=== PATIENT | female | born 1950 | race Caucasian/White ===

== ENCOUNTER 2022-06-09 13:30 | Outpatient (CLI) | payer MEDICARE | END 2022-06-09 13:31 | disposition home or self-care (01) | LOC: CSHMAMMO 13:30 | PROVIDERS: ATTEND Nurse Practitioner Family | DX: Z13.820 Encounter for screening for osteoporosis (principal); M85.852 Other specified disorders of bone density and structure, left thigh | CPT/HCPCS: 77080 ==

== ENCOUNTER 2024-07-30 21:13 | Observation (INO) | payer MEDICARE ==
[2024-07-30] MEDS ORDERED: Acetaminophen 650 MG Suppository PR PRN (21:29)
[2024-07-30 21:52] VITALS: BMI 29.2
[2024-07-30] MEDS: Acetaminophen 500 MG TAB PO SCH (22:12)
[2024-07-30] MEDS: Valsartan 80 MG TAB PO SCH (22:12)
[2024-07-30] MEDS: Gabapentin 300 MG CAP PO SCH (22:13)
[2024-07-30] MEDS: cloNIDine 0.1 MG TAB PO SCH (22:14)
[2024-07-30] MEDS: Nitroglycerin 0.4 MG TAB (25 Tab Bottle) SL PRN (22:16)
[2024-07-30 22:23] LABS: Troponin I 0.019 ng/mL (< 0.028)
[2024-07-31 01:48] LABS: Troponin I 0.054 ng/mL (< 0.028)
[2024-07-31 04:02] LABS: #Basophils 0.03 10x3/uL (0.0-0.2); #Eosinphils 0.12 10x3/uL (0.0-0.5); #Monocytes 0.59 10x3/uL (0.0-1.1); #Neutrophils 3.88 10x3/uL (1.5-8.4); %Basophils 0.4 % (0.0-2.0); %Eosinophils 1.7 % (0.0-6.0); %Lymphocytes 35.2 % (18.0-47.0); %Monocytes 8.3 % (0.0-10.0); %Neutrophils 54.3 % (40.0-75.0); Hemoglobin 11.4 g/dL (12.0-15.5); Mean Corpuscular HGB CONC 32.6 g/dL (32.0-36.0); Mean Corpuscular Hemoglobin 32.5 pg (27.0-33.0); Mean Corpuscular Volume 99.7 fL (81.6-98.3); Mean Platelet Volume 10.8 fL (7.4-10.4); Platelet Count 167 10x3/uL (150-450); RBC Distribution Width 12.6 % (11.5-14.5); Red Blood Cell (RBC) Count 3.51 10x6/uL (3.90-5.03); White Blood Cell (WBC) Count 7.1 10x3/uL (3.5-10.5)
[2024-07-31] MEDS: Acetaminophen 325 MG TAB PO PRN (04:17)
[2024-07-31 04:18] LABS: Anion Gap 13 mmol/L (10-20); BUN (Urea Nitrogen) 15 mg/dL (9.8-20.1); Calc. Creatinine Clearance 66 mL/min (70-130); Calcium 8.7 mg/dL (7.8-10.44); Carbon Dioxide 21 mmol/L (23-31); Cardiac Risk 2.7 (Less than 4.5); Chloride 112 mmol/L (98-107); Cholesterol 96 mg/dl (< 200 Desired); Estimated GFR 63; Glucose 101 mg/dL (83-110); HDL Cholesterol 35 mg/dL (>60 Neg Risk); LDL Cholesterol, Calculated 40 mg/dL; Potassium 3.7 mmol/L (3.5-5.1); Sodium 142 mmol/L (136-145); Triglycerides 103 mg/dL (Less than 150)
[2024-07-31] MEDS: cloNIDine 0.1 MG TAB PO SCH ×2 (08:15→21:56)
[2024-07-31] MEDS: Aspirin 81 mg Enteric Coated Tablet PO SCH (08:15)
[2024-07-31] MEDS: Enoxaparin 40 MG (0.4 mL) SYRINGE SC SCH (08:15)
[2024-07-31] MEDS ORDERED: Atorvastatin Calcium 40 MG TAB PO SCH ×2 (09:00→21:00)
[2024-07-31] MEDS ORDERED: Aspirin Chewable 81 MG TAB PO SCH (09:00)
[2024-07-31] MEDS ORDERED: Losartan 50 MG TAB PO SCH (09:00)
[2024-07-31] MEDS: Gabapentin 300 MG CAP PO SCH ×2 (12:15→21:56)
[2024-07-31 15:29] LABS: Troponin I 0.015 ng/mL (< 0.028)
[2024-07-31] MEDS ORDERED: Valsartan 80 MG TAB PO SCH (21:00)
[2024-07-31] MEDS: Valsartan 80 MG TAB PO SCH (21:55)
[2024-07-31] MEDS: Atorvastatin Calcium 40 MG TAB PO SCH (21:55)
[2024-07-31] MEDS: Latanoprost 0.005% Ophth Soln 2.5 ml Bottle EA EYE SCH (21:57)
[2024-07-31] MEDS: Nitrofurantoin Monohyd/M-Cryst 100 MG CAP PO SCH (21:57)
[2024-08-01 04:33] LABS: #Basophils 0.03 10x3/uL (0.0-0.2); #Eosinphils 0.15 10x3/uL (0.0-0.5); #Monocytes 0.61 10x3/uL (0.0-1.1); #Neutrophils 2.79 10x3/uL (1.5-8.4); %Basophils 0.5 % (0.0-2.0); %Eosinophils 2.4 % (0.0-6.0); %Lymphocytes 41.8 % (18.0-47.0); %Monocytes 9.9 % (0.0-10.0); %Neutrophils 45.2 % (40.0-75.0); Hemoglobin 11.5 g/dL (12.0-15.5); Mean Corpuscular HGB CONC 32.9 g/dL (32.0-36.0); Mean Corpuscular Hemoglobin 32.8 pg (27.0-33.0); Mean Corpuscular Volume 99.7 fL (81.6-98.3); Mean Platelet Volume 10.6 fL (7.4-10.4); Platelet Count 169 10x3/uL (150-450); RBC Distribution Width 12.9 % (11.5-14.5); Red Blood Cell (RBC) Count 3.51 10x6/uL (3.90-5.03); White Blood Cell (WBC) Count 6.2 10x3/uL (3.5-10.5)
[2024-08-01 04:51] LABS: Anion Gap 12 mmol/L (10-20); BUN (Urea Nitrogen) 14 mg/dL (9.8-20.1); Calc. Creatinine Clearance 68 mL/min (70-130); Calcium 9.1 mg/dL (7.8-10.44); Carbon Dioxide 22 mmol/L (23-31); Chloride 112 mmol/L (98-107); Estimated GFR 65; Glucose 92 mg/dL (83-110); Sodium 142 mmol/L (136-145)
[2024-08-01 07:57] VITALS: BP 143/61; TEMP 97.2
[2024-08-06] MEDS ORDERED: cloNIDine 0.1mg/24 Hour PATCH TD SCH (09:00)
== END 2024-08-01 10:56 | disposition home or self-care (01) ==
LOC: CSHTELE 21:13
PROVIDERS: ADMIT Family Medicine; ATTEND Family Medicine
DX: R07.2 Precordial pain (principal); I25.10 Atherosclerotic heart disease of native coronary artery without angina pectoris; E78.5 Hyperlipidemia, unspecified; I12.9 Hypertensive chronic kidney disease with stage 1 through stage 4 chronic kidney disease, or unspecified chronic kidney disease; N18.2 Chronic kidney disease, stage 2 (mild); M54.9 Dorsalgia, unspecified; G89.29 Other chronic pain; Z79.82 Long term (current) use of aspirin; Z98.890 Other specified postprocedural states; Z79.899 Other long term (current) drug therapy; Z88.2 Allergy status to sulfonamides
CPT/HCPCS: 71045; 71275; 74174; 80048 ×2; 80053; 80061; 83690; 84484 ×4; 85025 ×3; 93005 ×2; 94760 ×3; 96372; 99285; G0378 ×3; J1650; 36415; 93010